=== PATIENT | male | born 1945 | race Caucasian/White ===

== ENCOUNTER 2021-09-27 12:52 | Inpatient (IN) | payer MEDICARE, OTHER ==
[2021-09-27] VITALS (82 sets, daily range): BP systolic 78–128; BP diastolic 37–73; PULSE 66–78; TEMP 97.5–99.2; O2SAT 44–97
[~2021-09-27] VITALS: Ht 152.4 cm; Wt 89.7 kg
[~2021-09-27 12:52] MED LIST: AMBIEN10 MG PO; ASPIRIN 81M81 MG/TA2 PO; AVADART PO; AVODART 0.5MG0.5 MG PO; CITALOPRAM40 MG PO; HCTZ 25MG25 MG PO; HYDREA500 MG PO; HYDROXYURE500 MG/CAP PO; LASIX 20MG TABL20 MG PO; LUTEIN20 M1 PO; MOBIC7.5 M1 PO; NITRO-DUR0.1 MG/PAT TD; OCUVITE1 TA1 PO; PLAVIX 75MG TAB75 MG PO; PROAIR HFA0.09 MG/AC IH; ST. JOSEPH81 M2 PO; STOOL SOFTENER100 M2 PO; TENORMIN50 MG PO; ULTRAM 50MG TAB50 MG PO; ZESTRIL 10MG10 MG PO
--- NOTE | 2021-09-27 14:00 | NUR ---
PT ARRIVES TO ROOM 345 FROM [facility] WITH EMS. PT IS ALERT & ORIENTED X3, IS CHEERFUL ET DENIES PAIN. PT HAS IV IN HIS RIGHT FOREARM THAT WAS INSERTED BY PREVIOUS FACILITY. PT HAS SCAR ET CRUSTED INCISION ON HIS RIGHT LEG FROM PREVIOUS FRACTURE ET SURGERY IN [facility]. PT'S ARRIVES TO ROOM SHORTLY AFTER. PT IS PLACED UNDER CONTACT PRECAUTONS PER INFECTION CONTROL NURSE R/T HX OF MRSA. PT HAD ALSO RECOVERED FROM CDIFF 1 WEEK AGO. CDIFF PRECAUTIONS TO BE PLACED ALSO IF PT BEGINS TO HAVE LOOSE STOOLS. PT'S SPOUSE IS EDUCATED ON PRECAUTIONS. CALL LIGHT WITHIN REACH. BED ALARM IS ON FOR SAFETY.
[2021-09-27] MEDS ORDERED: ZYLOPRIM 100MG100 MG PO (14:06)
[2021-09-27] MEDS ORDERED: TYLENOL 325MG325 MG PO (14:07)
[2021-09-27] MEDS ORDERED: VITAMIN C500 MG PO (14:08)
[2021-09-27] MEDS ORDERED: LIPITOR 40MG TA40 MG PO (14:10)
[2021-09-27] MEDS ORDERED: 00186-0372-20 IH (14:11)
[2021-09-27] MEDS ORDERED: VITAMIN D31000 IU PO (14:12)
[2021-09-27] MEDS ORDERED: COLCRYS0.6 MG PO (14:13)
[2021-09-27] MEDS ORDERED: CYMBALTA 60MG60 MG PO (14:15)
[2021-09-27] MEDS ORDERED: LEXAPRO20 MG PO (14:17)
[2021-09-27] MEDS ORDERED: NEURONTIN300 MG/CAP PO (14:19)
[2021-09-27] MEDS ORDERED: PERC2.5TAB PO (14:21)
[2021-09-27] MEDS ORDERED: DUTOPROL 12.5 M1 TE2 PO (14:23)
[2021-09-27] MEDS ORDERED: MULTI VITAMINS1 TAB PO (14:26)
[2021-09-27] MEDS ORDERED: MIRALAX PA17 GM/Dose PO (14:27)
[2021-09-27] MEDS ORDERED: FLOMAX 0.40.4 MG/CAP PO (14:28)
[2021-09-27] MEDS ORDERED: ALDACTONE 25MG25 M1 PO (14:28)
[2021-09-27] MEDS ORDERED: ZANAFLEX CAPSULE2 MG PO (14:29)
[2021-09-27] MEDS ORDERED: ULTRAM 50MG TAB50 MG PO ×2 (14:30→14:31)
[2021-09-27] MEDS ORDERED: NATURAL E400 IU PO ×2 (14:32→14:34)
--- NOTE | 2021-09-27 16:30 | NUR ---
PT'S BLOOD PRESSURES ARE DECREASED ET PT IS SOMNOLENT, AROUSES ONLY TO PAIN. Baljeet ALAN IS NOTIFIED ET DR. DUGAN ARRIVES TO ASSESS PT. PT CONTINUES TO BE SOMNOLENT. OXYGEN IS ON @ 4L NC, SATS ARE 98%. OXYGEN IS DECREASED TO 3L, SATS MAINTAIN @ 95%. ARANGO CATHETER IS IN PLACE, DRAINING DARK MARIEL CLEAR URINE.
[2021-09-27 17:19] LABS: COLLECTION METHOD CATHETER
[2021-09-27 17:40] LABS: MUCOUS Present (NOT PRESENT); PH 5 (5-8); SQUAMOUS EPITHELIAL 0-2 /hpf (0-10); URINE APPEARANCE Hazy (CLEAR/HAZY); URINE BACTERIA None Seen /hpf (NONE SEEN); URINE BILIRUBIN Negative (NEGATIVE); URINE BLOOD Negative (NEGATIVE); URINE COLOR Amber (YELLOW); URINE GLUCOSE Negative (NEGATIVE); URINE KETONE Negative (NEGATIVE); URINE LEUKOCYTE ESTERASE Negative (NEGATIVE); URINE NITRATE Negative (NEGATIVE); URINE PROTEIN(semi-quant) Negative (NEGATIVE); URINE UROBILINOGEN Negative (NEGATIVE)
[2021-09-27 18:15] LABS: HEMATOCRIT 43.6 % (42.0-52.0); HEMOGLOBIN 12.6 g/dl (13.5-18.0); MEAN CELL VOLUME 101 fl (80.0-100.0); MEAN CORPUSCULAR HEMOGLOBIN 29 pg (27-31); MEAN CORPUSCULAR HGB CONC 29 g/dl (33.0-37.0); MEAN PLATELET VOLUME 10.6 fl (7.4-10.4); PLATELET COUNT 1370 K/mm3 (130-400); RED BLOOD COUNT 4.34 M/mm3 (4.20-5.60); REDCELL DISTRIBUTION WIDTH-CV 21.7 % (11.5-14.5)
--- NOTE | 2021-09-27 18:15 | NUR ---
PT AWAKE @ THIS TIME, ORIENTED X4, IS @ BEDSIDE. PT WAS ADMINISTERED NARCAN. BLOOD PRESSURES ARE ALSO IMPROVED. DR. DUGAN NOTIFIED, WILL CONTINUE HOURLY VITAL SIGNS FOR NOW. ZOSYN INFUSING INTO PERIPHERAL IV. OXYGEN IS 100% ON 2L. OXYGEN DECREASED TO 1L ET SATS MAINTAIN.
[2021-09-27 18:27] LABS: ALBUMIN 2.3 gm/dL (3.4-4.8); BILIRUBIN,TOTAL 1.1 mg/dL (0.2-1.2); CALCIUM 8.1 mg/dL (8.4-10.2); CREATININE, serum 1.16 mg/dL (0.72-1.25); TOTAL PROTEIN 6.4 gm/dL (6.2-8.1)
[2021-09-27 19:12] LABS: ANISOCYTOSIS 3+; BAND 12 % (0-10); HYPOCHROMIA 1+; LYMPHOCYTE 1 % (20.0-51.0); NEUTROPHILS 82 % (42.0-75.2); PLATELET ESTIMATE INCREASED (NORMAL)
[2021-09-27 19:13] LABS: OVALOCYTES 1+; POLYCHROMASIA 1+
--- NOTE | 2021-09-27 20:38 | NUR ---
PT ARRIVED FROM MEDICAL FLOOR VIA BED. MOVED TO ICU BED AND MONITORING. PT HAD INCONTINENT STOOL, CLEANED WITH PH BALANCED WIPES. NO SKIN BREAKDOWN NOTED TO BACKSIDE/COCCYX. PT VERY CALM, PLEASANT, AND ORIENTED. ANSWERS ALL QUESTIONS APPROPRIATELY. BLOOD PRESSURE 89/57, PLAN TO PLACE CENTRAL LINE AND START BOTH LASIX DRIP AND LEVOPHED TONIGHT. PT STATES UNDERSTANDING. KURT RO, AT BEDSIDE AND SPEAKING WITH PT'S AT THIS TIME TO UPDATE AND RECEIVED CONSENT FOR PROCEDURE. PT ORIENTED TO ROOM AND CALL LIGHT. WILL CONTINUE TO MONITOR.
--- NOTE | 2021-09-27 22:23 | NUR ---
CENTRAL LINE OK TO USE PER CHEST XRAY REPORT AND JAYJAY, MINE PATROL.
[2021-09-27 23:27] LABS: PROTHROMBIN TIME 22.7 SECONDS (9.7-12.8)
[2021-09-28] VITALS (480 sets, daily range): BP systolic 80–141; BP diastolic 60–95; PULSE 93–125; TEMP 97.4–98.1; O2SAT 60–100
[2021-09-28 00:38] LABS: CLOSTRIDIUM DIFF A/B POS; CLOSTRIDIUM DIFF A/B INTERP Toxigenic C.diff POS
[2021-09-28 01:27] LABS: CALCIUM 8.3 mg/dL (8.4-10.2); CREATININE, serum 1.27 mg/dL (0.72-1.25); POTASSIUM 4.2 mmol/L (3.5-4.5)
--- NOTE | 2021-09-28 03:08 | NUR ---
SPOKE WITH KURT RO, REGARDING POSITIVE C-DIFF RESULTS AND URINE OUTPUT SINCE LASIC GTT INITIATION. ORDERS RECEIVED.
--- NOTE | 2021-09-28 04:00 | NUR ---
UNABLE TO GET O2 SENSOR TO READ FOR LAST FEW HOURS. HAVE USED THREE PROBES, INCLUDING ONE MADE FOR EARLOBE AND ONE FOR FOREHEAD. PT STATES "THOSE NEVER WORK FOR ME". PT IN NO RESPIRATORY DISTRESS, TALKING WITH EASE. WILL CONTINUE TO TRY FOR READING AND CHART ABLE.
[2021-09-28 05:16] LABS: HEMATOCRIT 43.8 % (42.0-52.0); HEMOGLOBIN 12.7 g/dl (13.5-18.0); MEAN CELL VOLUME 100 fl (80.0-100.0); MEAN CORPUSCULAR HEMOGLOBIN 29 pg (27-31); MEAN CORPUSCULAR HGB CONC 29 g/dl (33.0-37.0); MEAN PLATELET VOLUME 10.3 fl (7.4-10.4); PLATELET COUNT 1776 K/mm3 (130-400); REDCELL DISTRIBUTION WIDTH-CV 21.7 % (11.5-14.5)
[2021-09-28 05:27] LABS: ALBUMIN 2.4 gm/dL (3.4-4.8); BILIRUBIN,TOTAL 1.3 mg/dL (0.2-1.2); CALCIUM 8.1 mg/dL (8.4-10.2); CREATININE, serum 1.3 mg/dL (0.72-1.25); POTASSIUM 3.9 mmol/L (3.5-4.5)
[2021-09-28 07:04] LABS: BAND 14 % (0-10); EOSINOPHIL 1 % (0-4); LYMPHOCYTE 1 % (20.0-51.0); NEUTROPHILS 80 % (42.0-75.2)
[2021-09-28 07:05] LABS: OVALOCYTES 1+; PLATELET ESTIMATE INCREASED (NORMAL); POLYCHROMASIA 1+; ROULEAUX 1+
[2021-09-28 07:26] LABS: PATHOLOGY DIFF REVIEW OK +
--- NOTE | 2021-09-28 08:00 | NUR ---
RESUMED CARE OF PT. VSS. A&OX4. PT IS CONTACT C-DIFF.
[2021-09-28 10:01] LABS: CALCIUM 8.1 mg/dL (8.4-10.2); CREATININE, serum 1.28 mg/dL (0.72-1.25); POTASSIUM 3.9 mmol/L (3.5-4.5)
[2021-09-28 10:10] LABS: PROTHROMBIN TIME 22.8 SECONDS (9.7-12.8)
--- NOTE | 2021-09-28 10:36 | NUR ---
repack room worker met with patient to complete intake. Patient is currently at [facility] for Rehab. Patient's Shae ([phone]) is still living at home and arrives to the unit. Patient reports that he receives help with all of his ADL's from the [facility] staff. Patient reports that at home he was using a rollator, but since arriving to the assisted he has been wheelchair bound. PCP is Dr. Escobar and he manages his medications through [facility]. Patient reports that his DPOA-HC is his daughter Eileen King.
--- NOTE | 2021-09-28 13:00 | NUR ---
Patient's PICC order was canceled by primary care nurse. A thrombin patch has been applied to patient's triple-lumen catheter. Primary care nurse reported decreased in drainage.
[2021-09-28 13:23] LABS: CALCIUM 8.2 mg/dL (8.4-10.2); CREATININE, serum 1.28 mg/dL (0.72-1.25); POTASSIUM 3.8 mmol/L (3.5-4.5)
--- NOTE | 2021-09-28 22:46 | NUR ---
ASSESSMENT COMPLETED. NO CHANGES FROM PREVIOSULY DOCUMENTED ASSESSMENT. PATIENT REMAINS ON LEVO AND LASIX DRIPS. SAFETY MEASURES MAINTAINED, PATIENT INDEPENDENTLY TURNS AND REPOSITIONS. WILL CONTINUE TO MONITOR
[2021-09-29] VITALS (687 sets, daily range): BP systolic 106–127; BP diastolic 59–90; PULSE 97–115; TEMP 97.3–98.7; O2SAT 84–100
[2021-09-29 04:07] LABS: HEMATOCRIT 43.9 % (42.0-52.0); HEMOGLOBIN 12.7 g/dl (13.5-18.0); MEAN CELL VOLUME 100 fl (80.0-100.0); MEAN CORPUSCULAR HEMOGLOBIN 29 pg (27-31); MEAN CORPUSCULAR HGB CONC 29 g/dl (33.0-37.0); MEAN PLATELET VOLUME 10.1 fl (7.4-10.4); PLATELET COUNT 1521 K/mm3 (130-400); REDCELL DISTRIBUTION WIDTH-CV 21.4 % (11.5-14.5)
[2021-09-29 04:12] LABS: INR 1.8 (0.8-3.0); PROTHROMBIN TIME 19.7 SECONDS (9.7-12.8)
[2021-09-29 04:15] LABS: PARTIAL THROMBOPLASTIN TIME 35.4 SECONDS (26.0-37.0)
[2021-09-29 04:17] LABS: ALBUMIN 2.3 gm/dL (3.4-4.8); CREATININE, serum 1.15 mg/dL (0.72-1.25); MAGNESIUM 1.4 mg/dL (1.6-2.6); POTASSIUM 3.3 mmol/L (3.5-4.5); TOTAL PROTEIN 6.3 gm/dL (6.2-8.1)
[2021-09-29 05:55] LABS: ANISOCYTOSIS 2+; BAND 25 % (0-10); EOSINOPHIL 2 % (0-4); LYMPHOCYTE 1 % (20.0-51.0); NEUTROPHILS 70 % (42.0-75.2); PLATELET ESTIMATE INCREASED (NORMAL)
[2021-09-29 05:56] LABS: HYPOCHROMIA 2+
--- NOTE | 2021-09-29 08:00 | NUR ---
Resumed care of PT. Patient is awake and alert but confused at times, stating that " someone is calling you" and " I have to go to work" but is able to state that she is in the hospital and that she came from [facility]. PT does not like to be repositioned, but due to her excoriated sacral/coccyx, and incontinence, Q2HR turn and incontinent care is needed often. PT has gallo placed, but during colonoscopy procedure, PT rectal tube was removed and not replaced due to the decrease in frequency and amount of GI bleed. See colonoscopy report. PT is currently recieved 1 uPRBC started by cooker soda. VSS.
--- NOTE | 2021-09-29 08:00 | NUR ---
Resumed care of PT. Patient is laying in bed, alert and awake. PT states that he if feeling better. VSS. PT is no longer on LEVO but still on LASIX
--- NOTE | 2021-09-29 11:44 | NUR ---
Clinical updates faxed to [facility]
--- NOTE | 2021-09-29 16:54 | NUR ---
Physician notified of change of rhythm from sinus tachycardia to A-fib
[2021-09-30] VITALS (642 sets, daily range): BP systolic 115–136; BP diastolic 64–84; PULSE 70–114; TEMP 97.3–98.4; O2SAT 78–100
[2021-09-30 05:55] LABS: HEMATOCRIT 42.8 % (42.0-52.0); HEMOGLOBIN 12.6 g/dl (13.5-18.0); MEAN CELL VOLUME 99 fl (80.0-100.0); MEAN CORPUSCULAR HEMOGLOBIN 29 pg (27-31); MEAN CORPUSCULAR HGB CONC 29 g/dl (33.0-37.0); MEAN PLATELET VOLUME 9.9 fl (7.4-10.4); PLATELET COUNT 1428 K/mm3 (130-400); RED BLOOD COUNT 4.32 M/mm3 (4.20-5.60); REDCELL DISTRIBUTION WIDTH-CV 21.1 % (11.5-14.5)
[2021-09-30 06:11] LABS: ALBUMIN 2.5 gm/dL (3.4-4.8); CALCIUM 8.3 mg/dL (8.4-10.2); CREATININE, serum 0.92 mg/dL (0.72-1.25); MAGNESIUM 1.6 mg/dL (1.6-2.6); POTASSIUM 3.5 mmol/L (3.5-4.5); TOTAL PROTEIN 6.8 gm/dL (6.2-8.1)
[2021-09-30 06:25] LABS: BAND 6 % (0-10); EOSINOPHIL 4 % (0-4); PLATELET ESTIMATE INCREASED (NORMAL)
[2021-09-30 06:26] LABS: ANISOCYTOSIS 2+
[2021-09-30 06:27] LABS: HYPOCHROMIA 2+
[2021-09-30 06:29] LABS: LYMPHOCYTE 2 % (20.0-51.0); NEUTROPHILS 85 % (42.0-75.2)
[2021-09-30 06:30] LABS: OVALOCYTES 1+
--- NOTE | 2021-09-30 08:30 | NUR ---
Resting in bed; reports right upper quadrant pain which rates at a 6/10. Pain is not new since arrival to the hospital. Requesting PRN [place]. Reports some shortness of breath but states that this is per his baseline. Patient is alert and and cooperative with staff and VS are stable at this time. Assisted to put lotion on feet per patient request. Patient has multple chronic ulcers on feet; see assessment.
--- NOTE | 2021-09-30 18:30 | NUR ---
Transfered upstairs with assistance of two PCT's. Patient alert and oriented per his usual. Complaining of back pain and PRN [place] administered.
--- NOTE | 2021-09-30 19:33 | NUR ---
THE PATIENT ARRIVED FROM ICU AT APPROXIMATELY 1830. THE PATIENT HAS BEEN VISUALLY ASSESSED AND DOES COMPLAIN OF SOME PAIN. REPORT GIVEN TO IVET GUZMAN.
--- NOTE | 2021-09-30 20:41 | NUR ---
TX GIVEN VIA MASK, TOLERATED WELL. PT CONFUSED AT TIMES. HOME CPAP SETUP AND PT PUT IT ON AT THIS TIME. 2L O2 BLEED IN. O2 Y ATTACHED AND RN AWARE OF ALL CHANGES.
--- NOTE | 2021-09-30 22:59 | NUR ---
ALERT AND OX3. RATING PAIN 7/10 AT SHIFT CHANGE. PRN MED GIVEN. PT SKIN IS RED. ARANGO CATH TO DD. LASIX GTT RUNNING AT 10ML/HR. PM MEDS GIVEN. POC DISCUSSED. CALL LIGHT WI REACH. ON PRECAUTIONS AND MAINTAINED.
[2021-10-01 04:03] VITALS: BP 136/78; PULSE 82; TEMP 97.6
[2021-10-01 06:45] LABS: HEMATOCRIT 43.6 % (42.0-52.0); HEMOGLOBIN 12.7 g/dl (13.5-18.0); MEAN CELL VOLUME 97 fl (80.0-100.0); MEAN CORPUSCULAR HEMOGLOBIN 28 pg (27-31); MEAN CORPUSCULAR HGB CONC 29 g/dl (33.0-37.0); MEAN PLATELET VOLUME 9.9 fl (7.4-10.4); PLATELET COUNT 1524 K/mm3 (130-400); RED BLOOD COUNT 4.52 M/mm3 (4.20-5.60); REDCELL DISTRIBUTION WIDTH-CV 21.2 % (11.5-14.5)
[2021-10-01 07:05] LABS: ALBUMIN 2.6 gm/dL (3.4-4.8); CALCIUM 8.6 mg/dL (8.4-10.2); CREATININE, serum 0.84 mg/dL (0.72-1.25); MAGNESIUM 1.8 mg/dL (1.6-2.6); POTASSIUM 3.4 mmol/L (3.5-4.5)
[2021-10-01 07:37] LABS: BAND 7 % (0-10); BASOPHIL 1 % (0-2); EOSINOPHIL 2 % (0-4); LYMPHOCYTE 2 % (20.0-51.0); METAMYELOCYTE 1 % (0-0); NEUTROPHILS 87 % (42.0-75.2); NUCLEATED RED BLOOD CELL 3 (0-6); PLATELET ESTIMATE INCREASED (NORMAL)
[2021-10-01 07:38] LABS: POLYCHROMASIA 1+; TARGET CELLS 1+
--- NOTE | 2021-10-01 08:15 | NUR ---
PT LAYING SUPINE IN BED WITH CPAP ON. PT STATES THAT HE IS NOT HAVING ANY PAIN. PT IS CONFUSED THIS AM AND ASK "WHERE AM I." PT WAS REORIENTED. PT IS VERY SLEEPY THIS AM. PT WAS INCONT OF STOOL. PT WAS CLEANED AND CHANGED. ARANGO IS DRAINING CLEAR YELLOW URINE AT BEDSIDE. CALL LIGHT IS WITHIN REACH.
[2021-10-01 08:40] VITALS: BP 119/69; PULSE 83; TEMP 97.9
[2021-10-01 12:04] VITALS: BP 131/68; PULSE 90; TEMP 98.6
[2021-10-01 17:37] VITALS: BP 149/77; PULSE 101; TEMP 97.7
--- NOTE | 2021-10-01 18:28 | NUR ---
PT LAYING IN BED ASLEEP ON 2 LIT VIA NC. PT SHOW SNO S/S OF DISTRESS OR PAIN AT THIS TIME. ARANGO IS DRAINING AT BEDSIDE CLEAR YELLOW URINE. LASIX IS INFUSING AT 10ML/HR. CALL LIGHT IS WITHIN REACH.
[2021-10-01 20:51] VITALS: BP 116/61; PULSE 92; TEMP 97.8
--- NOTE | 2021-10-01 21:17 | NUR ---
TX GIVEN VIA MASK, TOLERATED WELL.
--- NOTE | 2021-10-01 21:32 | NUR ---
ALERT OX2. INTERMITTENT CONFUSION. PT MOOD FLUCUATES FROM BEING VERY PLEASENT TO VERBALLY ABUSIVE AT TIMES. PAIN IN RT UPPER ABD. PAIN MEDS GIVEN. BILATERAL LEGS RED. ARANGO INTACT TO DD. CLEAR YELLOW URINE. TRIPLE IJ WITH LASIX RUNNING PER ORDER. INCONTINENT OF SEVERAL BM TODAY. CALL LIGHT WI REACH.
--- NOTE | 2021-10-01 23:13 | NUR ---
pt c/o 03/17 abdominal pain, repositioned, to early for pain med. sanchez notified and is okay with early administration. Randolph given approx 1 hour early.
[2021-10-02 00:17] VITALS: BP 123/63; PULSE 90; TEMP 98.3
[2021-10-02 04:50] VITALS: BP 120/65; PULSE 82; TEMP 97.7
--- NOTE | 2021-10-02 05:34 | NUR ---
PT MOANED MOST OF THE NIGHT WI MINIMAL SLEEP. INTERMITTENT CONFUSION AND LOOSE LIQ BMS INCONTINENT IN BED. ARANGO W GOOD URINE OUTPT. IV LASIX RUNNING PER ORDER.
[2021-10-02 06:42] LABS: HEMATOCRIT 44.6 % (42.0-52.0); MEAN CELL VOLUME 98 fl (80.0-100.0); MEAN CORPUSCULAR HEMOGLOBIN 29 pg (27-31); MEAN CORPUSCULAR HGB CONC 29 g/dl (33.0-37.0); MEAN PLATELET VOLUME 10.1 fl (7.4-10.4); PLATELET COUNT 1464 K/mm3 (130-400); RED BLOOD COUNT 4.55 M/mm3 (4.20-5.60)
[2021-10-02 07:08] LABS: ALBUMIN 2.5 gm/dL (3.4-4.8); CALCIUM 8.9 mg/dL (8.4-10.2); CREATININE, serum 0.8 mg/dL (0.72-1.25); MAGNESIUM 1.8 mg/dL (1.6-2.6); PHOSPHOROUS 3.7 mg/dL (2.3-4.7); POTASSIUM 3.2 mmol/L (3.5-4.5)
[2021-10-02 07:40] LABS: ANISOCYTOSIS 1+; BAND 15 % (0-10); EOSINOPHIL 2 % (0-4); LYMPHOCYTE 3 % (20.0-51.0); NEUTROPHILS 77 % (42.0-75.2); NUCLEATED RED BLOOD CELL 3 (0-6); OVALOCYTES 2+; PLATELET ESTIMATE INCREASED (NORMAL)
[2021-10-02 07:41] LABS: POIKILOCYTOSIS 1+
--- NOTE | 2021-10-02 07:47 | NUR ---
PT LAYING SUPINE ASLEEP IN BED ON 2 LIT VIA NC. ARANGO IS DRAINING AT BEDSIDE CLEAR YELLOW URINE. PT WAS CHECKED AND IS CLEAN AND DRY. PT STATES THAT HE IS NOT HAVING ANY PAIN OR SOB AT THIS TIME. A&O X3. CALL LIGHT IS WITHIN REACH.
[2021-10-02 07:55] VITALS: BP 106/60; PULSE 102; TEMP 98.4
[2021-10-02 09:37] LABS: INR 1.4 (0.8-3.0)
--- NOTE | 2021-10-02 10:11 | NUR ---
Social Work student followed up with Damari at [facility] to confirm that patient is currently residng there. SW student has confirmed that patient is also in SNF at the facility. A palliative care consult has also been put in for the patient by the physician. Social Work student faxed updates to [facility] of [place]
--- NOTE | 2021-10-02 10:17 | NUR ---
Call made to patient's , Shae #[phone], to discuss meeting. She requested we include patient's children, Rachel ([phone]) and Anson Whitman ([phone]). Call made to both of them and arranged for phone conference today at 1pm as both children live over 2 hours away. Shae stated she will be in this morning to visit the patient.
--- NOTE | 2021-10-02 10:30 | NUR ---
PT LASIX DRIP WAS DC'D PER DR ORDER.
[2021-10-02 12:13] VITALS: BP 115/72; PULSE 84; TEMP 97.4
--- NOTE | 2021-10-02 13:22 | NUR ---
not present in the hospital yet but conference call made to patient's children Rachel and Anson Whitman. Discussed patient condition and what decisions may need to be made down they road. Both Rachel and Osmel want Shae's input as to discharge plan. Questions answered and I provided my contact information if they think of any more.
--- NOTE | 2021-10-02 14:51 | NUR ---
Met with , Shae, in my office as the patient is not willing/able to converse. Shae states she is unable to care for patient at home but feels returning to [facility] [place] with [facility] is appropriate given the patient's decline since July. He apparently verbalized to Shae the thought that he would not come out of this. Shae also decided to make patient a DNR. Notified TRISHA, primary RN, and hospitalist team of conversation and 's wishes.
[2021-10-02 14:59] VITALS: BP 106/79; PULSE 49; TEMP 97.6
--- NOTE | 2021-10-02 15:06 | NUR ---
Dorina, Palliative Care RN, notified TRISHA that after speaking to the patient's ; the patient's is wanting to pursue with the patient returning back to [facility] hosp[facility] from [facility]. TRISHA contacted [facility] to update. The dimension quarry supervisor reports that she will notify their DON of this and if they can take tomorrow. TRISHA contacted and faxed a referral to Josue at [facility]. Josue states that they are able to admit the patient tomorrow. They would prefer and earlier admit time. TRISHA met with the patient's , Shae, and updated her on the above. Shae is in agreement to discharge tomorrow and aware that the patient would need to go by ambulance. TRISHA presented and read the IM form outloud to her. Shae verbalized understanding and signed the form. TRISHA provided her with a copy. *Discharge plan: [facility] hospice*
--- NOTE | 2021-10-02 18:30 | NUR ---
PT LAYING SUPINE IN BED ON 2 LIT VIA NC ASLEEP. NO S/S OF DISTRESS. PT WAS CHECKED AND IS CLEAN AND DRY. CALL LIGHT IS WITHIN REACH.
[2021-10-02 19:51] VITALS: BP 127/59; PULSE 53; TEMP 98.6
--- NOTE | 2021-10-02 21:07 | NUR ---
PT FOUND ON ROOM AIR, TOLERATING WELL. TX GIVEN VIA MASK. CPAP AT BEDSIDE AND SETUP WHENEVER PT IS READY TO PUT IT ON. 2L BLEED IN INLINE.
--- NOTE | 2021-10-02 22:37 | NUR ---
Patient assessed around 2014. Central line to right IJ. Peripheral INT to right hand. Denies pain and discomfort. Denies SOB and dyspnea. LS CTA in upper lobes, diminished in lower. HRR. Telemetry in place. Indwelling gallo catheter patent, draining clear yellow urine via dependent drainage. Patient voices no questions, needs, or concerns at this time. In bed with call light within reach. called tonight and stated that she wanted to put a stop to the transfer tomorrow, and wants her kids to talk with patient first, before any final decisions are made. Will pass on to day shift to let social director know.
[2021-10-03] VITALS (7 sets, daily range): BP systolic 112–126; BP diastolic 44–59; PULSE 58–88; TEMP 97.6–98.9
--- NOTE | 2021-10-03 04:53 | NUR ---
Patient has been resting in bed with call light within reach. Bed alarm on. Has been awake most of night. Has denied having pain and discomfort this shift. Received IV ABX and IV diuretic per orders. Voices no questions, needs, or concerns at this time. High fall risk precautions in place.
[2021-10-03 06:51] LABS: HEMATOCRIT 47.5 % (42.0-52.0); HEMOGLOBIN 13.9 g/dl (13.5-18.0); MEAN CELL VOLUME 97 fl (80.0-100.0); MEAN CORPUSCULAR HEMOGLOBIN 28 pg (27-31); MEAN CORPUSCULAR HGB CONC 29 g/dl (33.0-37.0); MEAN PLATELET VOLUME 10.1 fl (7.4-10.4); PLATELET COUNT 1417 K/mm3 (130-400); REDCELL DISTRIBUTION WIDTH-CV 21.6 % (11.5-14.5)
[2021-10-03 07:09] LABS: ALBUMIN 2.5 gm/dL (3.4-4.8); CALCIUM 8.8 mg/dL (8.4-10.2); CREATININE, serum 0.8 mg/dL (0.72-1.25); MAGNESIUM 1.6 mg/dL (1.6-2.6); PHOSPHOROUS 3.6 mg/dL (2.3-4.7); POTASSIUM 3.6 mmol/L (3.5-4.5)
[2021-10-03 07:34] LABS: BAND 6 % (0-10); EOSINOPHIL 2 % (0-4); LYMPHOCYTE 7 % (20.0-51.0)
[2021-10-03 07:35] LABS: PLATELET ESTIMATE INCREASED (NORMAL)
[2021-10-03 07:38] LABS: ANISOCYTOSIS 2+; NEUTROPHILS 79 % (42.0-75.2); POLYCHROMASIA 1+
[2021-10-03 07:40] LABS: HYPOCHROMIA 2+
--- NOTE | 2021-10-03 09:00 | NUR ---
Visited with daughter at bedside. She stated she has started making memorial arrangements for her mother and feels comfortable with the transfer to hospice house today. Negative covid results send to Casandra at [facility] as well. Plan for EMS transfer at 11am today.
--- NOTE | 2021-10-03 09:03 | NUR ---
Received report from primary nurse that requested a hold on transfer today. Call made to Shae for clarification. She stated that [facility] told her they couldn't take him until Saturday and that his children wanted to come visit him as well. She has not heard from the children when they may be here. I educated her on the visitor policy and that discharge will not be held for them to visit him here as they are able to visit him there as well. She verbalized understanding. She plans to be in sometime this afternoon. I notified SW and hospitalist team of the conversation and delay in discharge.
--- NOTE | 2021-10-03 11:07 | NUR ---
Assessment completed, patient is alert but disoriented, he is cooperative and does follow directions, he denies pain and does not appear to be in any acute discomfort or distress, heart RRR/ distal pulses are weak but palpable, discussed plan of care with the / originally we were palnning for transfer to hospice facility by we are now waiting to discuss goals and plan of care with additional family members today, will continue to monitor patient for the time being
--- NOTE | 2021-10-03 13:52 | NUR ---
Social Work student faxed updates to [facility].
--- NOTE | 2021-10-03 14:05 | NUR ---
VIRGINIA Vargas, at [facility] left TRISHA a voicemail stating that [facility] cannot admit until Saturday now; so they would not be able to take him until then. TRISHA was then notified that the patient's would like to hold off on discharge today, due to [facility] not being able to take until tomorrow, but also because the patient's children would like to visit the patient today and help with decision making for hospice vs continued care. TRISHA contacted and updated Alicia at [facility]. Alicia confirms that they are able to accept the patient tomorrow back on hospice vs SNF, depending on the family's decision.
--- NOTE | 2021-10-03 15:46 | NUR ---
Met with , Shae, at bedside. She was under the impression that the patient could stay here until his children arrive (planning for at 1000) and they decide hospice or not. I tried to explain that his stay here is determined on how long he needs IV antibiotics. I then talked with Queenie ALAN about current treatment plan. Queenie stated that the patient completed his course of IV antibiotics and the service was looking at discharge withing 24-48 hours. I also clarified with Monserrat RICO about [facility] taking the patient under senior care status versus hospice and she verified that [facility] can accept the patient under either status tomorrow, Saturday. I then met with the patient's at bedside again and informed her of all of this and if she needed any other clarification. She is very frustrated and states that the notes here are full of lies and she keeps hearing different things from different people and now is in the middle of everything with the patient's children, who are also very emotional. Shae also states that the children didn't know hospice was an option which is why they are coming and that no doctor has called to give her any updates or discuss the plan. I offered to have the hospitalist team talk with her now and also when rounding is tomorrow if she would like to join. I also offered to talk with her and the patient's children together today or tomorrow. She told me she would be in contact with the patient's children and get back to me.
--- NOTE | 2021-10-03 22:56 | NUR ---
THIS NURSE CONTACTED BY TELE REP TO REPORT A 11BEAT VTACH EPISODE, PT ASYMPTOMATIC, VSS, POTTASIUM INFUSING AT TIME. THIS NURSE STOPPED INFUSION. HOSPITALIST FOLLOWING. NO INTERVENTIONS AT THIS TIME. THIS NURSE WILL CLOSELY MONITOR.
--- NOTE | 2021-10-03 23:07 | NUR ---
Tx given via mask, tolerated well. Pt not ready for home CPAP yet.
[2021-10-04 04:42] VITALS: BP 120/54; PULSE 70; TEMP 97.9
--- NOTE | 2021-10-04 05:12 | NUR ---
PT PROVIDED BED BATH THIS SHIFT, ARANGO IN PLACE C&D, TIJ LUMEN CLEANED, DRESSING C/D/I. MEDICATION ADMINSITERED ORDERED. ALL NEEDS MET THIS SHIFT. CALL LIGHT WITHIN REACH.
[2021-10-04 06:51] LABS: HEMATOCRIT 43.9 % (42.0-52.0); HEMOGLOBIN 13.1 g/dl (13.5-18.0); MEAN CELL VOLUME 95 fl (80.0-100.0); MEAN CORPUSCULAR HEMOGLOBIN 28 pg (27-31); MEAN CORPUSCULAR HGB CONC 30 g/dl (33.0-37.0); MEAN PLATELET VOLUME 9.8 fl (7.4-10.4); PLATELET COUNT 1331 K/mm3 (130-400); RED BLOOD COUNT 4.63 M/mm3 (4.20-5.60); REDCELL DISTRIBUTION WIDTH-CV 21.3 % (11.5-14.5)
[2021-10-04 06:52] LABS: ALBUMIN 2.4 gm/dL (3.4-4.8); CALCIUM 8.6 mg/dL (8.4-10.2); CREATININE, serum 0.76 mg/dL (0.72-1.25); MAGNESIUM 1.9 mg/dL (1.6-2.6); PHOSPHOROUS 2.8 mg/dL (2.3-4.7); POTASSIUM 3.8 mmol/L (3.5-4.5)
[2021-10-04 07:22] VITALS: BP 131/66; PULSE 113; TEMP 97.9
[2021-10-04 07:43] LABS: EOSINOPHIL 3 % (0-4); HYPOCHROMIA 2+; LYMPHOCYTE 1 % (20.0-51.0); MYELOCYTE 1 % (0-0); NEUTROPHILS 90 % (42.0-75.2)
[2021-10-04 07:44] LABS: ANISOCYTOSIS 2+; PLATELET ESTIMATE INCREASED (NORMAL)
[2021-10-04 07:46] LABS: STOMATOCYTE 1+
--- NOTE | 2021-10-04 09:10 | NUR ---
Pt assessment complete. Pt is laying in bed upon entry, arouses to voice. He is oriented to self and time. Reports back pain, winces and makes pain known with any movement. No SOB, currently on 2L O2 via NC. Jayjay TRAVIS. Repositioning provided. No needs at this time.
[2021-10-04] MEDS ORDERED: VANCOCIN H125 MG/CAP PO (09:37)
[2021-10-04] MEDS ORDERED: DIGITEK0.25 MG PO (09:38)
[2021-10-04] MEDS ORDERED: HYDROXYURE500 MG/CAP PO (09:39)
[2021-10-04] MEDS ORDERED: TOPROL XL 25MG25 MG PO (09:39)
[2021-10-04] MEDS ORDERED: LASIX 40MG TABL40 MG PO (09:41)
[2021-10-04] MEDS ORDERED: NORCO 325 MG-51 TAB PO (09:43)
--- NOTE | 2021-10-04 10:17 | NUR ---
Alicia, at [facility], states that she reached out to the patient's yesterday. Alicia states that the family will be having a meeting with [facility] on . Alicia states that they are able to take the patient back today and request long-term care orders. TRISHA notified the clinical team. The clinical team rounded on the patient and had his , Shae, on speaker phone. Shae is in agreement to the plan and of the patient discharging back to [facility] today. TRISHA read the EMS Consent Form outloud to Shae over the phone. Shae gave approval to sign the form on her behalf. The patient is to discharge today, 10/04, back to [facility] on long-term care. Transportation was scheduled at 1130, via [facility]. TRISHA informed the patient's RN, his , and Alicia at [facility] of the transport time. No additional needs at this time.
--- NOTE | 2021-10-04 11:48 | NUR ---
RIJ dc'd pressure held to site, no bleeding present. RFA INT dc'd. Pt left via EMS at this time. Ro dc'd, pt did urinate after. Sleeping well after administration of pain medications.
== END 2021-10-04 12:16 | DRG 871 ==
LOC: SURG 12:52 → ICU 20:23 → MEDICAL 09-30 17:14
PROVIDERS: Internal Medicine; Nurse Practitioner Family; Physician Assistant; ADMIT Internal Medicine
PROC: 05HM33Z Insertion of Infusion Device into Right Internal Jugular Vein, Percutaneous Approach (ICD-10-PCS; principal; 2021-09-27)
DX: A41.9 Sepsis, unspecified organism (principal); G92.8 Other toxic encephalopathy; I50.23 Acute on chronic systolic (congestive) heart failure; K81.0 Acute cholecystitis; K86.3 Pseudocyst of pancreas; A04.72 Enterocolitis due to Clostridium difficile, not specified as recurrent; D68.0 Von Willebrand disease; J96.10 Chronic respiratory failure, unspecified whether with hypoxia or hypercapnia; I42.9 Cardiomyopathy, unspecified; D45 Polycythemia vera; J44.9 Chronic obstructive pulmonary disease, unspecified; I25.10 Atherosclerotic heart disease of native coronary artery without angina pectoris; I11.0 Hypertensive heart disease with heart failure; E78.5 Hyperlipidemia, unspecified; N40.0 Benign prostatic hyperplasia without lower urinary tract symptoms; F32.A Depression, unspecified; M10.9 Gout, unspecified; G62.9 Polyneuropathy, unspecified; G47.33 Obstructive sleep apnea (adult) (pediatric); G89.29 Other chronic pain; I07.1 Rheumatic tricuspid insufficiency; T40.605A Adverse effect of unspecified narcotics, initial encounter; N30.20 Other chronic cystitis without hematuria; I73.9 Peripheral vascular disease, unspecified; K76.1 Chronic passive congestion of liver; E87.6 Hypokalemia; E83.42 Hypomagnesemia; E86.0 Dehydration; Z95.5 Presence of coronary angioplasty implant and graft; Z79.82 Long term (current) use of aspirin; Z87.891 Personal history of nicotine dependence; I25.2 Old myocardial infarction; Z23 Encounter for immunization
CPT/HCPCS: 99223-AI; 99233-AI; 99239; J1160; J1940; J2260; J2310; J2543; J3475; J3480; J7060; P9047